=== PATIENT | male | born 2000 | race Caucasian/White ===

== ENCOUNTER 2024-08-25 13:22 | Emergency (ER) | payer MEDICAID ==
[~2024-08-25] VITALS: Ht 177.8 cm; Wt 73.0 kg
[2024-08-25 13:41] VITALS: BP 118/70; PULSE 100; RESP 16; TEMP 98.4; O2SAT 95
[2024-08-25] MEDS: KETOROLAC 15MG/ML VIAL IM ONE (17:38)
[2024-08-25] MEDS ORDERED: NAPR-1176 MT (18:21)
== END 2024-08-25 18:39 | disposition home or self-care (01) ==
LOC: ER 13:22
DX: S02.2XXA Fracture of nasal bones, initial encounter for closed fracture (principal); Y04.0XXA Assault by unarmed brawl or fight, initial encounter; Y93.01 Activity, walking, marching and hiking; Y92.89 Other specified places as the place of occurrence of the external cause; Y99.8 Other external cause status
CPT/HCPCS: 99285; 70450; 70486; 96372; J1885